=== PATIENT | female | born 1980 | race Caucasian/White ===

== ENCOUNTER 2017-03-10 11:45 | Emergency (ER) | payer BC ==
[2017-03-10] MEDS ORDERED: LIDO:MAALOX 1:1 20 ML SINGLE DOSE PO ONE (12:15)
[2017-03-10] MEDS ORDERED: ONDANSETRON ODT 4 MG TAB.RAPDIS PO ONE (12:15)
[2017-03-10 12:46] LABS: BASO % 1 % (0-3); EOS % 1 % (0-3); HEMATOCRIT 39.4 % (36.0-47.0); HEMOGLOBIN 13.6 g/dL (12.0-15.5); LYMPH # 1.6 x10^3/uL (1.0-4.8); LYMPH % 30 % (24-48); MEAN CORPUSCULAR HEMOGLOBIN 30 pg (25-35); MEAN CORPUSCULAR HGB CONC 35 g/dL (31-37); MEAN CORPUSCULAR VOLUME 87 fL (79-100); MONO # 0.3 x10^3/uL (0.0-1.1); MONO % 5 % (0-9); NEUT # 3.4 x10^3uL (1.8-7.7); NEUT % 63 % (31-73); PLATELET COUNT 222 x10^3/uL (140-400); RED BLOOD COUNT 4.54 x10^6/uL (3.50-5.40); RED CELL DISTRIBUTION WIDTH 14.1 % (11.5-14.5); WHITE BLOOD COUNT 5.4 x10^3/uL (4.0-11.0)
[2017-03-10 12:54] LABS: BILIRUBIN,URINE NEG (NEG); CLARITY,URINE CLEAR; COLOR,URINE YELLOW; GLUCOSE,URINE NEG (NEG)
[2017-03-10 12:55] LABS: NITRITE,URINE NEG (NEG); UROBILINOGEN,URINE 0.2 mg/dL (0.2 mg/dL)
[2017-03-10 12:56] LABS: ALBUMIN 4.1 g/dL (3.4-5.0); ALBUMIN/GLOBULIN RATIO 1.2 (1.0-1.7); CALCIUM 8.6 mg/dL (8.5-10.1); CREATININE 0.7 mg/dL (0.6-1.0); GFR 94.7; POTASSIUM 3.4 mmol/L (3.5-5.1); TOTAL BILIRUBIN 0.6 mg/dL (0.2-1.0); TOTAL PROTEIN 7.5 g/dL (6.4-8.2)
[2017-03-10] MEDS ORDERED: FAMOTIDINE 20 MG/2 ML VIAL IVP ONE (13:00)
[2017-03-10] MEDS ORDERED: MORPHINE SULFATE 4 MG/ML DISP.SYRIN. IV ONE (13:45)
--- NOTE | 2017-03-10 13:51 | RAD ---
Examination: Ultrasound right upper quadrant History: History of right upper quadrant pain Comparison: 05/23/2007 Findings: The visualized pancreas grossly appears unremarkable. There is linear echogenicity identified within the gallbladder probably a mucosal fold given the appearance. The common bile duct measures 3.2 mm in transverse dimension. No evidence of gallstones identified. The right kidney measures 10.1 cm in length. There is a 1.7 cm cystic structure identified in the right kidney with some echogenicity within probably a cyst containing debris. The visualized IVC appears patent. Impression: 1. Linear echogenicity identified in the gallbladder likely a mucosal fold given the appearance. 2. 1.7 cm cyst containing debris identified in the right kidney.
[2017-03-10 14:20] VITALS: BP 111/63
--- NOTE | 2017-03-10 14:28 | ED.ADGEN ---
Past History Past Medical History: Bipolar, Depression, Other Past Surgical History: Hysterectomy, Oophorectomy, Other Alcohol Use: Occasionally Drug Use: Marijuana Social History Narrative: no recent THC use Adult General Chief Complaint Chief Complaint Upper abdominal pain HPI HPI Patient is a 36-year-old female presents with intermittent epigastric pain worse after eating for the past 2 days. Pain is described as midepigastric, moderate sufficient to severe and associated with nausea. Patient radiates to upper back. Patient denies vomiting, hematemesis, bloody stools or dark tarry stools. No flank pain, hematuria, urgency frequency or dysuria. Past surgical history includes hysterectomy and oopherectomy. Review of Systems Review of Systems ROS as per HPI. Current Medications Current Medications Current Medications Medications (Trade) Dose Ordered Sig/Ne Start Time Stop Time Status Last Admin Dose Admin Famotidine (Pepcid) 20 mg 1X ONCE 03/10/17 13:00 03/10/17 13:01 DC 03/10/17 13:20 20 MG Morphine Sulfate (Morphine 4mg Syringe) 4 mg 1X ONCE 03/10/17 13:45 03/10/17 13:46 DC 03/10/17 13:44 4 MG Multi-Ingredient Mouthwash/Gargle (Gi Cocktail) 20 ml 1X ONCE 03/10/17 12:15 03/10/17 12:16 DC 03/10/17 12:13 20 ML Ondansetron HCl (Zofran Odt) 4 mg 1X ONCE 03/10/17 12:15 03/10/17 12:16 DC 03/10/17 12:13 4 MG Allergies Allergies Allergies Coded Allergies Type Severity Reaction Last Updated Verified butorphanol Allergy Unknown 03/10/17 Yes Physical Exam Physical Exam Constitutional: Well developed, well nourished, moderate discomfort secondary to pain. Non-toxic appearance. HENT: Normocephalic, atraumatic, bilateral external ears normal, oropharynx moist, no oral exudates, nose normal. Eyes: PERRLA, EOMI, conjunctiva normal. Neck: Normal range of motion, no tenderness, supple, no stridor. Cardiovascular:Heart rate regular rhythm. Lungs & Thorax: Bilateral breath sounds clear to auscultation Abdomen: Bowel sounds normal, soft, gastric pain, tenderness no rebound rigidity or guarding, no masses, no pulsatile masses. Skin: Warm, dry, no erythema, no rash. Back: No tenderness, no CVA tenderness. Extremities: No tenderness, no cyanosis, no clubbing, ROM intact, no edema. Neurologic: Alert and oriented X 3, normal motor function, normal sensory function, no focal deficits noted. Psychologic: Affect normal, judgement normal, mood normal. Current Patient Data Vital Signs Vital Signs Date Time Temp Pulse Resp B/P (MAP) Pulse Ox O2 Delivery O2 Flow Rate FiO2 03/10/17 13:45 80 20 120/64 (82) 98 Room Air 03/10/17 11:46 98.2 Lab Results Laboratory Tests Test 03/10/17 12:20 03/10/17 12:25 Urine Collection Type Void Urine Color Yellow Urine Clarity Clear Urine pH 7.0 Urine Specific [place] 1.015 Urine Protein Neg (NEG-TRACE) Urine Glucose (UA) Neg mg/dL (NEG) Urine Ketones (Stick) Neg mg/dL (NEG) Urine Blood Neg (NEG) Urine Nitrite Neg (NEG) Urine Bilirubin Neg (NEG) Urine Urobilinogen Dipstick 0.2 mg/dL (0.2 mg/dL) Urine Leukocyte Esterase Neg (NEG) White Blood Count 5.4 x10^3/uL (4.0-11.0) Red Blood Count 4.54 x10^6/uL (3.50-5.40) Hemoglobin 13.6 g/dL (12.0-15.5) Hematocrit 39.4 % (36.0-47.0) Mean Corpuscular Volume 87 fL (79-100) Mean Corpuscular Hemoglobin 30 pg (25-35) Mean Corpuscular Hemoglobin Concent 35 g/dL (31-37) Red Cell Distribution Width 14.1 % (11.5-14.5) Platelet Count 222 x10^3/uL (140-400) Neutrophils (%) (Auto) 63 % (31-73) Lymphocytes (%) (Auto) 30 % (24-48) Monocytes (%) (Auto) 5 % (0-9) Eosinophils (%) (Auto) 1 % (0-3) Basophils (%) (Auto) 1 % (0-3) Neutrophils # (Auto) 3.4 x10^3uL (1.8-7.7) Lymphocytes # (Auto) 1.6 x10^3/uL (1.0-4.8) Monocytes # (Auto) 0.3 x10^3/uL (0.0-1.1) Eosinophils # (Auto) 0.0 x10^3/uL (0.0-0.7) Basophils # (Auto) 0.0 x10^3/uL (0.0-0.2) Sodium Level 140 mmol/L (136-145) Potassium Level 3.4 mmol/L (3.5-5.1) L Chloride Level 107 mmol/L (98-107) Carbon Dioxide Level 21 mmol/L (21-32) Anion Gap 12 (6-14) Blood Urea Nitrogen 17 mg/dL (7-20) Creatinine 0.7 mg/dL (0.6-1.0) Estimated GFR (Cockcroft-Gault) 94.7 BUN/Creatinine Ratio 24 (6-20) H Glucose Level 81 mg/dL (70-99) Calcium Level 8.6 mg/dL (8.5-10.1) Total Bilirubin 0.6 mg/dL (0.2-1.0) Aspartate Amino Transferase (AST) 13 U/L (15-37) L Alanine Aminotransferase (ALT) 20 U/L (14-59) Alkaline Phosphatase 49 U/L (46-116) Total Protein 7.5 g/dL (6.4-8.2) Albumin 4.1 g/dL (3.4-5.0) Albumin/Globulin Ratio 1.2 (1.0-1.7) Lipase 109 U/L (73-393) EKG EKG [] Radiology/Procedures Radiology/Procedures [Limited abdominal ultrasound: Folded gallbladder, debris and right renal cyst,] Course & Med Decision Making Course & Med Decision Making Pertinent Labs and Imaging studies reviewed. (See chart for details) [Nondescript abdominal pain, worse with eating. No relief with GI cocktail. Limited improvement with Pepcid, full released with morphine. Abdominal ultrasound, lab work unrevealing. Patient has follow-up appointment with her PCP this afternoon. Will defer further workup at this time. ] Final Impression Final Impression [1. Epigastric pain 2. Nausea] Problems: Dragon Disclaimer Dragon Disclaimer This electronic medical record was generated, in whole or in part, using a voice recognition dictation system. PROMISE PELAYO DO March 10, 2017 14:28
== END 2017-03-10 14:20 | disposition home or self-care (01) ==
LOC: ER 11:45
DX: R10.13 Epigastric pain (principal); R11.0 Nausea; F31.9 Bipolar disorder, unspecified; F12.10 Cannabis abuse, uncomplicated; Z88.8 Allergy status to other drugs, medicaments and biological substances
CPT/HCPCS: 36415; 76705; 80053; 81003; 83690; 85027; 96374; 96375; 99285; J2270; Q0162; S0028